=== PATIENT | female | born 1970 | race Caucasian/White ===

== ENCOUNTER → 2018-03-12 | Outpatient (CLI) | payer BC ==
--- NOTE | 2018-03-16 08:07 | MM ---
Reason for exam: screening (asymptomatic). Last mammogram was performed 4 years and 3 months ago. History: Taking progesterone for 1 year 6 months beginning at age 38. Physical Findings: A clinical breast exam by your physician is recommended on an annual basis and results should be correlated with mammographic findings. MG 3D Screening Mammo W/Cad Bilateral CC and MLO view(s) were taken. Prior study comparison: December 20, 2013, bilateral digital screening mammo w/CAD. July 12, 2009, bilateral diagnostic digital mammog. The breast tissue is heterogeneously dense. This may lower the sensitivity of mammography. Finding: There are typically benign round calcifications in both breasts. There is no discrete abnormality. ASSESSMENT: Benign, BI-RAD 2 RECOMMENDATION: Routine screening mammogram of both breasts in 1 year.
== END | disposition home or self-care (01) ==
LOC: RADMAMWWP 07:49
PROVIDERS: ATTEND Obstetrics & Gynecology
DX: Z12.31 Encounter for screening mammogram for malignant neoplasm of breast (principal)
CPT/HCPCS: 77063; 77067

== ENCOUNTER → 2019-09-01 | Day surgery (SDC) | payer BC ==
[2019-08-30 14:08] VITALS: BMI 29.5
[~2019-09-01] MED LIST: LACTATED RINGERS 1,000 ML IV SCH; LIDOCAINE 1% 20 ML VIAL (10MG/ML) FOR IV START INTRADERMA ONE; LIDOCAINE 1% INJ 10MG/ML (20 ML MDV) ONE; PROPOFOL 10 MG/ML 20 ML VIAL IV ONE
[2019-09-01 09:34] VITALS: RESP 16; TEMP 98.8
--- NOTE | 2019-09-01 10:07 | P.PCN ---
Date of Procedure: 09/01/19 Description of Procedure: BRIEF HISTORY: Patient is a 48-year-old, pleasant, with a medical history significant for gastroesophageal reflux disease treated with PPI therapy. Past. The patient reports good control of her symptoms with lansoprazole however she reports breakthrough symptoms if history is from her dietary restriction denies any odynophagia or dysphagia but has had a scratchy throat recently. At this time plan is for EGD for further evaluation. PROCEDURE PERFORMED: Esophagogastroduodenoscopy with biopsies. PREOPERATIVE DIAGNOSIS: GERD. ESTIMATED BLOOD LOSS: Minimal. IV sedation per anesthesia. PROCEDURE: After informed consent was obtained, the patient was brought into the endoscopy unit. IV sedation was administered by Anesthesia under continuous monitoring. Initially the Olympus GIF-190 video endoscope was inserted into the mouth. Esophagus intubated without any difficulty. It was gradually advanced into the stomach and duodenum and carefully examined. The bulb and the second part of the duodenum appeared normal, with biopsies taken. The scope at this time was withdrawn to the stomach, adequately insufflated with air, and upon careful examination, mucosa of the antrum, body, cardia and the fundus appeared grossly normal except for some mild scattered erythema in the antrum and body suggestive of mild gastritis with biopsies taken and a few diminutive polyps in the fundus and body suggestive of fundic gland polyps which were biopsied. The scope was then withdrawn into the esophagus. The GE junction was located at 38 cm from the incisors and appeared somewhat irregular with biopsies taken to rule out Ureña's esophagus. Small 1 cm hiatal hernia noted. The esophagus appeared normal. There were no erosions or ulcerations seen and the patient tolerated the procedure well. IMPRESSION: 1. Mild gastritis antrum body, biopsied. 2. Gastric polyp suggestive of fundic gland polyps, biopsied. 3. Biopsies of the duodenum and GE junction. 4. Small hiatal hernia. RECOMMENDATIONS: The findings of this examination were discussed with the patient and her . Continue current medical management. Okay to resume diet. Await pathology from biopsies. Follow up in the gastroenterology clinic as previously scheduled.
[2019-09-01 10:28] VITALS: BP 102/69; PULSE 57
== END ==
LOC: ORWHC2ENDO 08:56
PROVIDERS: ATTEND Internal Medicine
DX: K21.0 Gastro-esophageal reflux disease with esophagitis (principal); K29.50 Unspecified chronic gastritis without bleeding; K31.7 Polyp of stomach and duodenum; K44.9 Diaphragmatic hernia without obstruction or gangrene; Z88.5 Allergy status to narcotic agent; Z88.1 Allergy status to other antibiotic agents; Z79.899 Other long term (current) drug therapy; Z98.890 Other specified postprocedural states; Z87.09 Personal history of other diseases of the respiratory system
CPT/HCPCS: 81025; 88305; 43239; J2001; J2704

== ENCOUNTER → 2019-09-17 | Outpatient (CLI) | payer BC ==
[2019-09-17 09:37] LABS: Basophils % (A) 1 %; Eosinophils # (A) 0.1 k/uL (0-0.7); Eosinophils % (A) 1 %; HCT 39.2 % (34.0-46.0); HGB 12.7 gm/dL (11.4-16.0); Lymphocytes # (A) 1.3 k/uL (1.0-4.8); Lymphocytes % (A) 29 %; MCH 28.9 pg (25.0-35.0); MCHC 32.5 g/dL (31.0-37.0); Mean Platelet Volume 6.5; Monocytes # (A) 0.2 k/uL (0-1.0); Monocytes % (A) 5 %; Neutrophils # (A) 2.9 k/uL (1.3-7.7); Neutrophils % (A) 62 %; Platelet Count 265 k/uL (150-450); RBC 4.41 m/uL (3.80-5.40); RDW 13.2 % (11.5-15.5); WBC 4.7 k/uL (3.8-10.6)
[2019-09-17 09:46] LABS: Appearance,Urine Cloudy (Clear); Bacteria,Urine Rare /hpf; Bilirubin,Urine Negative (Negative); Blood,Urine Negative (Negative); Color,Urine Yellow; Glucose,Urine (UA) Negative (Negative); Ketones,Urine Negative (Negative); Leukocyte Esterase,Urine Large (Negative); Mucus,Urine Rare /hpf; Nitrite,Urine Negative (Negative); Protein,Urine Negative (Negative); RBC,Urine 1 /hpf (0-5); Squamous Epithelial Cell,Urine 8 /hpf (0-4); Urobilinogen,Urine <2.0 mg/dL (<2.0); WBC,Urine 4 /hpf (0-5)
[2019-09-17 17:29] LABS: Insulin Level 9.7 mIU/mL (3.0-25.0)
[2019-09-17 17:50] LABS: AST 20 U/L (13-35); African American GFR (CKD) 102.5 (60.0-200.0); Albumin/Globulin Ratio 1.52 (1.60-3.17); Alkaline Phosphatase 53 U/L (41-126); BUN/Creat Ratio 13.75 Ratio (12.00-20.00); C Reactive Protein <0.4 mg/dL (0.0-0.8); Chloride 105 mmol/L (96-109); Cholesterol 162 mg/dL (0-200); Ferritin 12.2 ng/mL (10.0-291.0); Globulin 2.7 g/dL (1.6-3.3); Glucose 89 mg/dL (70-110); Iron 99 ug/dL (50-170); LDH 143 U/L (120-246); Magnesium 1.9 mg/dL (1.5-2.4); Phosphorus 3.1 mg/dL (2.4-5.1); Potassium 4.5 mmol/L (3.5-5.5); Sodium 138 mmol/L (135-145); Total Bilirubin 0.8 mg/dL (0.3-1.2); Total Iron Binding Capacity 300 ug/dL (228-460); Total Protein 6.8 g/dL (6.2-8.2); Triglycerides <50.0 mg/dL (0.0-149.0); Uric Acid 3.8 mg/dL (2.9-7.7)
[2019-09-17 18:06] LABS: ALT <8 U/L (8-44); GGT <15 U/L (0-38)
[2019-09-17 18:14] LABS: Hemoglobin A1C 5.2 % (4.0-6.0)
== END | disposition home or self-care (01) ==
LOC: LABWHC1 09:03
PROVIDERS: ATTEND Chiropractor
DX: E16.2 Hypoglycemia, unspecified (principal); R53.83 Other fatigue; E03.9 Hypothyroidism, unspecified; D51.9 Vitamin B12 deficiency anemia, unspecified
CPT/HCPCS: 36415; 80053; 80061; 81001; 82306; 82728; 82977; 83036; 83090; 83525; 83540; 83550; 83615; 83735; 84100; 84439; 84443; 84479; 84480; 84550; 85025; 86140

== ENCOUNTER → 2021-07-30 | Outpatient (CLI) | payer BC ==
--- NOTE | 2021-08-01 11:35 | MM ---
Reason for exam: screening (asymptomatic). Last mammogram was performed 3 years and 5 months ago. History: Taking progesterone for 1 year 6 months beginning at age 38. Physical Findings: A clinical breast exam by your physician is recommended on an annual basis and results should be correlated with mammographic findings. MG 3D Screening Mammo W/Cad Bilateral CC and MLO view(s) were taken. Prior study comparison: March 12, 2018, bilateral MG 3d screening mammo w/cad. December 20, 2013, bilateral digital screening mammo w/CAD. The breast tissue is heterogeneously dense. This may lower the sensitivity of mammography. No significant changes when compared with prior studies. ASSESSMENT: Benign, BI-RAD 2 RECOMMENDATION: Routine screening mammogram of both breasts in 1 year.
== END | disposition home or self-care (01) ==
LOC: RADMAMWWP 16:22
PROVIDERS: ATTEND Obstetrics & Gynecology
DX: Z12.31 Encounter for screening mammogram for malignant neoplasm of breast (principal)
CPT/HCPCS: 77063; 77067

== ENCOUNTER → 2022-09-16 | Outpatient (CLI) | payer BC ==
--- NOTE | 2022-09-16 11:37 | MM ---
Reason for Exam: Screening (asymptomatic). Last mammogram was performed 1 year(s) and 2 month(s) ago. Patient History: Menarche at age 13. First Full-Term at age 25. Patient has history of breast feeding. Progesterone, starting at age 38 for 1 year, 6 months. Risk Values: Arelis 5 year model risk: 0.9%. NCI Lifetime model risk: 8.9%. Prior Study Comparison: 12/20/2013 Bilateral Screening Mammogram, [facility]. 03/12/2018 Bilateral Screening Mammogram, [facility]. 07/30/2021 Bilateral Screening Mammogram, [facility]. Tissue Density: The breast tissue is heterogeneously dense. This may lower the sensitivity of mammography. Findings: Analyzed By CAD. Several tiny benign-appearing round calcifications throughout the bilateral breasts are redemonstrated. There is no suspicious new group of microcalcifications or new suspicious mass in either breast. Overall Assessment: Benign, BI-RAD 2 Management: Screening Mammogram of both breasts in 1 year. A clinical breast exam by your physician is recommended on an annual basis and results should be correlated with mammographic findings. Electronically signed and approved by: Wei Arenas M.D.
== END | disposition home or self-care (01) ==
LOC: RADMAMWWP 07:12
PROVIDERS: ATTEND Obstetrics & Gynecology
DX: Z12.31 Encounter for screening mammogram for malignant neoplasm of breast (principal)
CPT/HCPCS: 77063; 77067

== ENCOUNTER → 2023-12-16 | Outpatient (CLI) | payer BC ==
--- NOTE | 2023-12-17 22:10 | MM ---
Reason for Exam: Screening (asymptomatic). Last mammogram was performed 1 year(s) and 3 month(s) ago. Patient History: Menarche at age 13. First Full-Term at age 25. Postmenopausal. Patient has history of breast feeding. Currently using Progesterone, starting at age 52. Risk Values: Arelis 5 year model risk: 1.0%. NCI Lifetime model risk: 8.7%. Prior Study Comparison: 12/20/2013 Bilateral Screening Mammogram, [facility]. 03/12/2018 Bilateral Screening Mammogram, [facility]. 07/30/2021 Bilateral Screening Mammogram, [facility]. 09/16/2022 Bilateral MG 3D screening mammo w/cad, [facility]. Tissue Density: The breast tissue is heterogeneously dense. This may lower the sensitivity of mammography. Findings: Analyzed By CAD. There is no suspicious group of microcalcifications or new suspicious mass in either breast. Overall Assessment: Negative, BI-RAD 1 Management: Screening Mammogram of both breasts in 1 year. . Patient should continue monthly self-breast exams. A clinical breast exam by your physician is recommended on an annual basis. This exam should not preclude additional follow-up of suspicious palpable abnormalities. Note on Arelis scores and lifetime risk: 1. A Arelis score greater than 3% is considered moderate risk. If this is the case, consider specialist referral to assess eligibility for a risk reducing agent. 2. If overall lifetime risk for the development of breast cancer is 20% or higher, the patient may qualify for future screening with alternating mammogram and breast MRI. Electronically signed and approved by: Shawn Kneyon M.D. Radiologist
== END | disposition home or self-care (01) ==
LOC: RADMAMWWP 07:49
PROVIDERS: ATTEND Obstetrics & Gynecology
DX: Z12.31 Encounter for screening mammogram for malignant neoplasm of breast (principal); Z78.0 Asymptomatic menopausal state
CPT/HCPCS: 77063; 77067

== ENCOUNTER → 2024-01-26 | Outpatient (CLI) | payer BC ==
--- NOTE | 2024-01-26 19:39 | US ---
EXAMINATION TYPE: US thyroid st tissue head/neck DATE OF EXAM: 01/26/2024 COMPARISON: NONE CLINICAL INDICATION: Female, 53 years old with history of R94.6 ABNORMAL RESULTS OF THYROID FUNCTION STUDIES; Patient denies any sings or symptoms at this time. GLAND SIZE: Right Lobe: 5.2 x 1.2 x 1.8 cm Overall Parenchyma: homogeneous Left Lobe: 5.5 x 1.1 x 1.4 cm Overall Parenchyma: homogeneous Isthmus Thickness: 0.2 cm NODULES RIGHT: # of nodules measured on right: 1 subcentimeter nodule noted. This measures 0.7 x 0.5 x 0.5 cm appears heterogenous and hypoechoic. Solid lesion has smooth borders and is wider than tall. LEFT: # of nodules measured on left: 0 ISTHMUS: # of nodules measured in the isthmus: 0 Bilateral neck scanned, no evidence of lymphadenopathy. IMPRESSION: Subcentimeter nodule right lobe thyroid. 2017 ACR TI-RADS LEVEL: TR-RADS 3 - Mildly Suspicious: Follow if > 1.5 cm, FNA if > 2.5 cm *Highest TI-RADS level nodule reported
== END | disposition home or self-care (01) ==
LOC: RADUSWWP 07:01
PROVIDERS: ATTEND Family Medicine
DX: E04.1 Nontoxic single thyroid nodule (principal); R94.6 Abnormal results of thyroid function studies
CPT/HCPCS: 76536

== ENCOUNTER 2024-06-17 12:00 | Day surgery (SDC) | payer BC ==
[~2024-06-17 12:00] MED LIST changes: +LACTATED RINGERS 1,000 ML BAG ONE; -LACTATED RINGERS 1,000 ML IV SCH; -LIDOCAINE 1% 20 ML VIAL (10MG/ML) FOR IV START INTRADERMA ONE; -LIDOCAINE 1% INJ 10MG/ML (20 ML MDV) ONE; -PROPOFOL 10 MG/ML 20 ML VIAL IV ONE
[2024-06-17] MEDS ORDERED: LIDOCAINE 1% INJ 10MG/ML (20 ML MDV) ONE (12:04)
[2024-06-17] MEDS ORDERED: PROPOFOL 10 MG/ML 20 ML VIAL IV ONE (12:04)
--- NOTE | 2024-06-24 15:55 | PCN ---
PROCEDURE NOTE REQUESTING PHYSICIAN: Dr. Causey BRIEF HISTORY: Patient is a 53-year-old pleasant white female, scheduled for an upper endoscopy as a part of evaluation of longstanding history of GERD. Lately, her symptoms have been progressively getting worse and her medications were changed to Protonix 40 mg daily and her symptoms are significantly improved. She is scheduled for an upper endoscopy to rule complicated reflux disease. PROCEDURE PERFORMED: Esophagogastroduodenoscopy with biopsy. PREOPERATIVE DIAGNOSIS: Longstanding history of gastroesophageal reflux disease. ANESTHESIA: IV sedation per Anesthesia. DESCRIPTION OF PROCEDURE: After informed consent was obtained from the patient, she was brought into the endoscopy unit. IV conscious sedation was administered by Anesthesia under continuous monitoring. Initially, an Olympus GIF-180 video endoscope was inserted into the mouth, esophagus intubated without any difficulty, and was gradually advanced into the stomach and duodenum and carefully examined. Bulb and the second part of the duodenum appeared normal. The scope at this time was withdrawn to the stomach, adequately insufflated with air, and upon careful examination, mucosa of the antrum appeared normal. In the gastric body, there were multiple small gastric polyps, which were biopsied. On retroflexion, the cardia and fundus appeared normal. Scope was then withdrawn to the esophagus. The GE junction was located at 38 cm from the incisors. There was a small hiatal hernia noted. There was a 4 mm tongue of Ureña appearing mucosa just proximal to the GE junction that was biopsied. Rest of the esophagus appeared normal. No erosions or ulcerations seen. The patient tolerated the procedure well. IMPRESSION: 1. Short segment of Ureña esophagus, status post biopsy. 2. Small hiatal hernia. 3. Multiple small gastric polyps. RECOMMENDATIONS: Findings of this examination were discussed with the patient as well as her family. She was advised to follow up with the biopsy results. If the biopsy confirms the presence of Ureña esophagus, recommend a repeat upper endoscopy in 3 years. In the meantime, continue with Protonix 40 mg daily and follow antireflux measures. MMODL / IJN: [id number] /
== END 2024-06-17 12:50 ==
LOC: ORWHC2ENDO 12:00
PROVIDERS: ATTEND Internal Medicine Gastroenterology
DX: K21.9 Gastro-esophageal reflux disease without esophagitis
CPT/HCPCS: 43239; 81025; 88305

== ENCOUNTER → 2024-11-28 | Outpatient (CLI) | payer BC ==
--- NOTE | 2024-11-28 19:47 | MR ---
INDICATION: Patient age:Female; 54 years old; Reason for study: R22.1 Localized swelling, mass and lump C2-C4; PHH. COMPARISON: Complete spine x-ray 09/27/2024. TECHNIQUE: Multi planar, multi sequence imaging was performed of the cervical spine before and after the uneventful administration of 9 mL Gadobutrol intravenously. FINDINGS: Alignment: The cervical vertebral bodies have preserved heights. Mild retrolisthesis of C4 on C5. Bones: Bone signal is within normal limits. Cord: The spinal cord is unremarkable with regards to their signal intensity and morphology. No abnor mal contrast enhancement identified. No prevertebral soft tissue swelling identified. Measures up to 3 mm in thickness. Discs: Minimal multilevel disc desiccation is present. C2-C3: No significant disc pathology. The spinal canal is patent. No neural foraminal stenosis. C3-C4: Mild broad-based disc bulge without significant effacement of the anterior thecal sac. No diego ral foraminal stenosis. C4-C5: Mild retrolisthesis with minimal broad-based disc bulge. No significant effacement of the ante rior thecal sac. No neural foraminal stenosis. C5-C6: No significant disc pathology. The spinal canal is patent. No neural foraminal stenosis. C6-C7: No significant disc pathology. The spinal canal is patent. No neural foraminal stenosis. C7-T1: No significant disc pathology. The spinal canal is patent. No neural foraminal stenosis. Other: Mildly enlarged bilateral jugular lymph nodes measuring up to 1 cm short axis (series 201, cari ge 4). IMPRESSION: 1. No evidence for disc herniation or significant spinal canal stenosis. No abnormal contrast enhance ment or evidence of mass. 2. Minimal multilevel disc degeneration. 3. Nonspecific mildly enlarged bilateral jugular lymph nodes. May be reactive. [facility], , 11/28/2024 7:44 PM
== END | disposition home or self-care (01) ==
LOC: RADMRIMAIN 17:50
PROVIDERS: ATTEND Family Medicine
DX: M50.30 Other cervical disc degeneration, unspecified cervical region (principal); R22.1 Localized swelling, mass and lump, neck
CPT/HCPCS: 72156; A9585

== ENCOUNTER → 2025-05-23 | Outpatient (CLI) | payer BC ==
--- NOTE | 2025-05-23 12:04 | MM ---
Reason for Exam: Screening (asymptomatic). Last mammogram was performed 1 year(s) and 5 month(s) ago. Patient History: Menarche at age 13. First Full-Term at age 25. Postmenopausal. Patient has history of breast feeding. Currently using Progesterone, starting at age 52. Risk Values: Arelis 5 year model risk: 1.0%. NCI Lifetime model risk: 8.5%. Prior Study Comparison: 07/30/2021 Bilateral Screening Mammogram, [facility]. 09/16/2022 Bilateral MG 3D screening mammo w/cad, [facility]. 12/16/2023 Bilateral MG 3D screening mammo w/cad, [facility]. Tissue Density: The breasts are heterogeneously dense, which may obscure small masses. Findings: Analyzed By CAD. Right breast: There is no suspicious group of microcalcifications or new suspicious mass. Left breast: There is no suspicious group of microcalcifications or new suspicious mass. Overall Assessment: Negative, BI-RAD 1 Management: Screening Mammogram of both breasts in [address] [facility] will attempt to contact patient to return for supplemental views and ultrasound if indicated. Patient should continue monthly self-breast exams. A clinical breast exam by your physician is recommended on an annual basis. This exam should not preclude additional follow-up of suspicious palpable abnormalities. Note on Arelis scores and lifetime risk: 1. A Arelis score greater than 3% is considered moderate risk. If this is the case, consider specialist referral to assess eligibility for a risk reducing agent. 2. If overall lifetime risk for the development of breast cancer is 20% or higher, the patient may qualify for future screening with alternating mammogram and breast MRI. [facility], , 05/23/2025 9:16 AM. Electronically signed and approved by: Leo Pearson DO
== END | disposition home or self-care (01) ==
LOC: RADMAMWWP 07:24
PROVIDERS: ATTEND Obstetrics & Gynecology
DX: Z12.31 Encounter for screening mammogram for malignant neoplasm of breast (principal); R92.333 Mammographic heterogeneous density, bilateral breasts; Z78.0 Asymptomatic menopausal state
CPT/HCPCS: 77063; 77067